=== PATIENT | male | born 1985 | race Two or more races ===

== ENCOUNTER 2016-05-20 20:28 | Emergency (ER) | payer OTHER | END 2016-05-20 20:30 | disposition home or self-care (01) | LOC: CFTX 20:28 | DX: L97.929 Non-pressure chronic ulcer of unspecified part of left lower leg with unspecified severity (principal) | CPT/HCPCS: 82947; 99282 ==

== ENCOUNTER 2016-07-18 10:16 | Emergency (ER) | payer OTHER ==
--- NOTE | ~2016-07-18 | MR133 ---
[facility] A Service of [facility] RADIOLOGY TEXT RESULTS PATIENT: CHRISTOPHER NOLASCO LOCATION: [facility] : [birth year] UNIT #: [id number] AGE: [address]: Hugo Neil DO SEX: M ORDER DR: [id number] [facility] [address] [place], [place] [address] [id number] E MR#: [id number] Acc #: [id number] NAME: CHRISTOPHER NOLASCO : 1985 SEX: M STUDY DATE/TIME: 07/18/2016 14:23 UNIT: [facility] ROOM: STUDY DESCRIPTION: MR MRA Neck WWo Contrast Attending Physician: Hugo Neil D.O. Referring Physician: No Primary Care Physician Ordering Physician: Hugo Neil D.O. Primary Care Physician: No Primary Care Physician MRI CENTER REPORT This report is preliminary unless electronic signature is present. EXAM Cervical carotid MR angiogram with and without contrast 07/18/2016 HISTORY Dizziness and nausea, worse with movement upon waking this morning. TECHNIQUE MR angiographic imaging was performed across the carotid bifurcations with and without contrast. 15 mL of MultiHance was used. FINDINGS The great vessels are widely patent at their origins. Both vertebral arteries are widely patent with the left being more dominant than the right. The carotid bifurcations are clear with no evidence of stenosis or dissection. No flow disturbance is seen. No evidence of stenosis by NASCET criteria. IMPRESSION Normal. STAT * RESULT Dictated by... Hang Silva M.D. THIS IS AN ELECTRONICALLY VERIFIED REPORT Hang Silva M.D. at 07/18/2016 6:29 PM [place] TD: 07/18/2016 15:11 JOB #: [id number] [facility] A Service of [facility] RADIOLOGY TEXT RESULTS PATIENT: CHRISTOPHER NOLASCO [id number] : [birth year] UNIT #: [id number] AGE: [address]: Hugo Neil DO SEX: M ORDER DR: MRI CENTER REPORT Page 1 of 1 COPY
--- NOTE | ~2016-07-18 | EKG ---
PATIENT: CHRISTOPHER NOLASCO UNIT #: [id number] Ventricular Rate: 64 BPM Atrial Rate: 64 BPM P-R Interval: 202 ms QRS Duration: 92 ms Q-T Interval: 378 ms QTC Calculation(Bezet): 389 ms P [place]: 39 degrees Calculated R [place]: 26 degrees Calculated T [place]: 35 degrees Diagnosis Line: Normal sinus rhythm Diagnosis Line: Normal ECG Diagnosis Line: No previous ECGs available Diagnosis Line: Confirmed by JAMEY PHILLIP MD ([id number]) on Diagnosis Line: 07/18/2016 11:23:59 PM INTERPRETING MD: DIANE
--- NOTE | ~2016-07-18 | MR122 ---
[facility] A Service of [facility] RADIOLOGY TEXT RESULTS PATIENT: CHRISTOPHER NOLASCO LOCATION: [facility] : [birth year] UNIT #: [id number] AGE: [address]: Hugo Neil DO SEX: M ORDER DR: [id number] [facility] [address] [place], [place] [address] [id number] E MR#: [id number] Acc #: [id number] NAME: CHRISTOPHER NOLASCO : 1985 SEX: M STUDY DATE/TIME: 07/18/2016 14:11 UNIT: [facility] ROOM: STUDY DESCRIPTION: MR MRA Head Wo Contrast Attending Physician: Hugo Neil D.O. Referring Physician: No Primary Care Physician Ordering Physician: Hugo Neil D.O. Primary Care Physician: No Primary Care Physician MRI CENTER REPORT This report is preliminary unless electronic signature is present. EXAM Intracranial MR angiogram 07/18/2016 HISTORY Dizziness upon waking this morning with nausea, worse with moving. TECHNIQUE MR angiographic imaging was performed from the skull base to the [place]. FINDINGS The MR study is normal. There is no evidence of aneurysm, vascular malformation or major branch vessel occlusion. IMPRESSION Normal. STAT * RESULT Dictated by... Hang Silva M.D. THIS IS AN ELECTRONICALLY VERIFIED REPORT Hang Silva M.D. at 07/18/2016 6:29 PM [place] TD: 07/18/2016 15:09 JOB #: [id number] MRI CENTER REPORT Page 1 of 1 COPY
--- NOTE | ~2016-07-18 | MR18 ---
[facility] A Service of [facility] RADIOLOGY TEXT RESULTS PATIENT: CHRISTOPHER NOLASCO LOCATION: [facility] : 87 UNIT #: [id number] AGE: [address]: Hugo Neil DO SEX: M ORDER DR: [id number] [facility] [address] [place], [place] [address] [id number] E MR#: [id number] Acc #: [id number] NAME: CHRISTOPHER NOLASCO : 1985 SEX: M STUDY DATE/TIME: 07/18/2016 13:45 UNIT: [facility] ROOM: STUDY DESCRIPTION: MR Brain Wo Contrast Attending Physician: Hugo Neil D.O. Referring Physician: No Primary Care Physician Ordering Physician: Hugo Neil D.O. Primary Care Physician: No Primary Care Physician MRI CENTER REPORT This report is preliminary unless electronic signature is present. EXAM Brain MRI. HISTORY Lightheadedness, dizziness and nausea, worse with head movement since waking up this morning. TECHNIQUE Multiplanar imaging of the brain was performed with and without contrast. 17 mL of MultiHance was used. FINDINGS On diffusion weighted imaging, there is no evidence of abnormal restricted diffusion to suggest a recent infarct. The routine brain images show no white matter signal abnormalities. Ventricular size is normal. No hemorrhages are seen on gradient echo imaging. No mass lesions are identified. Extraaxial structures are unremarkable. IMPRESSION Negative brain MRI. No evidence of recent infarct. STAT * RESULT Dictated by... Hang Silva M.D. THIS IS AN ELECTRONICALLY VERIFIED REPORT Hang Silva M.D. at 07/18/2016 6:29 PM MIGUEL/leydi TD: 07/18/2016 15:10 [facility] A Service of [facility] RADIOLOGY TEXT RESULTS PATIENT: CHRISTOPHER NOL[facility]CO [id number] [birth year] UNIT #: [id number] AGE: [address]: Hugo Neil DO SEX: M ORDER DR: JOB #: [id number] MRI CENTER REPORT Page 1 of 1 COPY
[2016-07-18 11:24] LABS: URINE SOURCE CLEAN CATCH
[2016-07-18 11:43] LABS: POC - CKMB 1.4 ng/mL (0.0-7.9); POC - TROPONIN <0.05 ng/mL (<=0.05)
[2016-07-18 11:48] LABS: URINE APPEARANCE CLEAR; URINE BILIRUBIN NEG (NEG); URINE BLOOD NEG (NEG); URINE COLOR YELLOW; URINE GLUCOSE NEG (NEG); URINE KETONE NEG (NEG); URINE LEUKOCYTE ESTERASE NEG (NEG); URINE NITRATE NEG (NEG); URINE PH 7.5 (5-8); URINE PROTEIN NEG (NEG); URINE SPECIFIC GRAVITY 1.006 (1.003-1.035); URINE UROBILINOGEN 0.2 MG/DL (NEG)
[2016-07-18 11:52] LABS: BASOPHIL% 0.5 % (0-2.5); EOSINOPHIL% 0.5 % (0.0-7.0); HEMATOCRIT 48.8 % (38.0-50.0); HEMOGLOBIN 16.2 gm/dL (13.0-16.0); LYMPHOCYTE# 1.7 X10e3 (1.0-3.5); LYMPHOCYTE% 29.7 % (17.0-45.0); MEAN CELL VOLUME 84.6 FL (83-96); MEAN CORPUSCULAR HEMOGLOBIN 28.1 PG (28-34); MEAN CORPUSCULAR HGB CONC 33.2 g/dL (30-36); MEAN PLATELET VOLUME 10.4 FL (6.5-11.5); MONOCYTE# 0.4 X10e3 (0-1.0); MONOCYTE% 7.7 % (3.0-12.0); NEUTROPHIL# 3.6 X10e3 (1.5-7.1); NEUTROPHIL% 61.6 % (40-75); PLATELET COUNT 201 X10e3 (140-420); RED BLOOD COUNT 5.77 X10e (3.90-5.60); RED CELL DISTRIBUTION WIDTH 13.5 % (11.0-15.5); WHITE BLOOD COUNT 5.9 X10e3 (4.0-10.5)
[2016-07-18 11:56] LABS: DIFF IND NO
[2016-07-18 11:57] LABS: CULTURE INDICATED? NO
[2016-07-18 12:15] LABS: ALBUMIN SERUM 4.4 g/dL (3.5-5.0); BILIRUBIN, DIRECT 0.1 mg/dL (0.0-0.2); BILIRUBIN,INDIRECT 0.5 mg/dL (0.0-0.9); BILIRUBIN,TOTAL 0.6 mg/dL (0.2-2.0); BUN/CREATININE RATIO 11.11; CALCIUM SERUM 9.2 mg/dL (8.4-10.2); CREATININE SERUM 0.9 mg/dL (0.6-1.4); POTASSIUM 3.8 mmol/L (3.5-5.1); PROTEIN TOTAL SERUM 8.2 g/dL (6.0-8.3)
== END 2016-07-18 16:05 | disposition home or self-care (01) ==
LOC: CED 10:16
PROVIDERS: Emergency Medicine
DX: R42 Dizziness and giddiness (principal); R11.0 Nausea
CPT/HCPCS: 36415; 70544; 70549; 70551; 80048; 80076; 81003; 82553; 82947; 84484; 85025; 93005; 96360; 99284; A9577